=== PATIENT | male | born 1990 | race African-American/Black ===

== ENCOUNTER 2020-04-29 00:20 | Emergency (ER) | payer SELFPAY ==
[~2020-04-29] VITALS: Ht 175.3 cm; Wt 72.6 kg
[2020-04-29 00:35] VITALS: Ht 175.3 cm; Wt 72.6 kg
[2020-04-29 01:50] VITALS: BP 127/81
== END 2020-04-29 01:50 | disposition home or self-care (01) ==
LOC: ED 00:20
DX: S83.91XA Sprain of unspecified site of right knee, initial encounter (principal); X58.XXXA Exposure to other specified factors, initial encounter; Y93.89 Activity, other specified; Y92.89 Other specified places as the place of occurrence of the external cause; Y99.8 Other external cause status
CPT/HCPCS: Q0092